=== PATIENT | male | born 1995 | race Hispanic/Latino ===

== ENCOUNTER 2022-03-24 20:44 | Inpatient (IN) | payer BC, OTHER ==
[~2022-03-24] VITALS: Ht 182.9 cm; Wt 131.1 kg
[2022-03-24] MEDS ORDERED: ONDANSETRON 4MG INJ IV PRN (21:30)
[2022-03-24] MEDS ORDERED: ACETAMINOPHEN 650 MG SUPPOSITORY RC PRN (21:30)
[2022-03-24] MEDS ORDERED: MORPHINE 2 MG SYG IV PRN (21:30)
[2022-03-24] MEDS ORDERED: HYDROMORPHONE 1 MG INJ IV PRN (21:30)
[2022-03-24 21:35] VITALS: BP 117/67
[2022-03-24 22:03] LABS: BASOPHILS % (AUTO) 0.6 % (0.0-5.0); HEMATOCRIT 41.2 % (42-54); LYMPHOCYTES % (AUTO) 13.3 % (21.0-51.0); MEAN CORPUSCULAR HEMOGLOBIN 31.8 pg (27.0-33.0); MEAN CORPUSCULAR HGB CONC 34.2 g/dL (32.0-36.0); MONOCYTES % (AUTO) 8.5 % (3.0-13.0); PLATELET COUNT (AUTO) 360 K/uL (130-400); RED BLOOD CELL COUNT(AUTO) 4.43 MIL/uL (4.50-6.20); RED CELL DISTRIBUTION WIDTH 12.3 % (11.0-15.5); WHITE BLOOD COUNT (AUTO) 16.5 K/uL (4.8-10.8)
[2022-03-24 22:08] VITALS: BP 117/67
[2022-03-24] MEDS ORDERED: LACTATED RINGERS 1000ML 1,000 ML IV ONE (22:09)
[2022-03-24 22:19] LABS: INR 1.05 (0.85-1.15); PROTHROMBIN TIME 11.4 SEC (9.6-11.6)
[2022-03-24 22:21] LABS: PARTIAL THROMBOPLASTIN TIME 23.3 SEC (26.3-35.5)
[2022-03-24 22:37] LABS: ALBUMIN 3.5 g/dL (3.5-5.0); CREATININE 1.1 mg/dL (0.5-1.5); MAGNESIUM 2.2 mg/dL (1.80-2.40); PHOSPHORUS 3.9 mg/dL (2.5-4.9); TOTAL PROTEIN, SERUM 8.4 g/dL (6.0-8.3)
[2022-03-24] MEDS ORDERED: IOHEXOL 350 MG/ML 100ML INFUS..BTL IV ONE (23:52)
[2022-03-25 00:15] VITALS: BP 125/64
[2022-03-25 01:51] LABS: APPEARANCE,URINE CLEAR (CLEAR); BILIRUBIN,URINE NEGATIVE (NEGATIVE); COLOR,URINE LIGHT-YELLOW (YELLOW); GLUCOSE, URINE (UA) NEGATIVE (NEGATIVE); KETONES,URINE 40 mg/dL (NEGATIVE); LEUKOCYTE ESTERASE ,URINE NEGATIVE Leu/uL (NEGATIVE); NITRATE,URINE NEGATIVE (NEGATIVE); OCCULT BLOOD,URINE NEGATIVE (NEGATIVE); PROTEIN,URINE 20 mg/dL (NEGATIVE); UROBILINOGEN,URINE 0.2 mg/dL (0.2-1.0)
[2022-03-25 01:58] LABS: RBC,URINE 0-1 /HPF (0-1); WBC,URINE 0-1 /HPF (0-1)
[2022-03-25 04:45] VITALS: BP 123/68
[2022-03-25 06:14] LABS: BASOPHILS % (AUTO) 0.5 % (0.0-5.0); EOSINOPHILS % (AUTO) 2.3 % (0.0-8.0); HEMATOCRIT 38.7 % (42-54); LYMPHOCYTES % (AUTO) 14.7 % (21.0-51.0); MEAN CORPUSCULAR HEMOGLOBIN 31.8 pg (27.0-33.0); MEAN CORPUSCULAR HGB CONC 33.1 g/dL (32.0-36.0); MONOCYTES % (AUTO) 9.9 % (3.0-13.0); NEUTROPHILS % (AUTO) 70.6 % (40.0-77.0); PLATELET COUNT (AUTO) 423 K/uL (130-400); RED BLOOD CELL COUNT(AUTO) 4.03 MIL/uL (4.50-6.20); RED CELL DISTRIBUTION WIDTH 12.2 % (11.0-15.5); WHITE BLOOD COUNT (AUTO) 14.7 K/uL (4.8-10.8)
[2022-03-25 06:27] LABS: CREATININE 1.2 mg/dL (0.5-1.5); POTASSIUM 4.1 mmol/L (3.5-5.1)
[2022-03-25 08:50] VITALS: BP 113/64
[2022-03-25] MEDS: ENOXAPARIN SODIUM 40 MG/0.4 ML SYRINGE SQ SCH ×2 (09:00→21:42)
[2022-03-25] MEDS: FAMOTIDINE 20MG VIAL IV SCH ×2 (10:08→21:00)
[2022-03-25] MEDS: LACTATED RINGERS 1000ML 1,000 ML IV SCH ×2 (10:50→17:08)
[2022-03-25 12:40] VITALS: BP 116/60
[2022-03-25 16:35] VITALS: BP 106/62
[2022-03-25 20:00] VITALS: BP 118/63
[2022-03-26] VITALS (25 sets, daily range): BP systolic 100–164; BP diastolic 50–94
[2022-03-26] MEDS: LACTATED RINGERS 1000ML 1,000 ML IV SCH ×2 (01:58→13:30)
[2022-03-26] MEDS ORDERED: FENTANYL CITRATE PF 50 MCG/1 ML 5ML AMP IV ONE ×2 (09:06→18:35)
[2022-03-26] MEDS ORDERED: PROPOFOL 10 MG/ML 20ML VIAL IV ONE (09:06)
[2022-03-26] MEDS ORDERED: ROCURONIUM 10MG/1ML SYR 10 MG/ML ML ONE ×4 (09:06→17:06)
[2022-03-26] MEDS ORDERED: MIDAZOLAM HCL 1 MG/ML 2ML VIAL ONE ×2 (09:06→14:59)
[2022-03-26] MEDS: FAMOTIDINE 20MG VIAL IV SCH ×2 (09:56→21:00)
[2022-03-26] MEDS ORDERED: BUPIVACAINE/PF 0.5% 30ML VIAL ONE (12:54)
[2022-03-26] MEDS ORDERED: LIDOCAINE HCL 1% 20 ML VIAL ONE (12:54)
[2022-03-26] MEDS ORDERED: ONDANSETRON 4MG INJ ONE (15:00)
[2022-03-26] MEDS ORDERED: LIDOCAINE HCL 1% 20 ML VIAL MISC ONE (15:49)
[2022-03-26] MEDS ORDERED: BUPIVACAINE/PF 0.5% 30ML VIAL INJ ONE (15:50)
[2022-03-26] MEDS ORDERED: FENTANYL CITRATE PF 50 MCG/1 ML 2ML VIAL ONE (15:51)
[2022-03-26] MEDS ORDERED: MEPERIDINE-PF 25 MG/ML SYG ONE ×2 (18:00→18:14)
[2022-03-26] MEDS ORDERED: GLYCOPYRROLATE 1 MG/5 ML SYRINGE ONE (18:43)
[2022-03-26] MEDS ORDERED: NEOSTIGMINE 5MG/5ML SYR IV ONE (18:43)
[2022-03-26] MEDS ORDERED: KETOROLAC 30MG VIAL (30MG/ML) ONE ×2 (18:48→18:49)
[2022-03-26] MEDS ORDERED: HYDROMORPHONE 1 MG INJ ONE (19:37)
[2022-03-26] MEDS ORDERED: ZOSYN 3.375GM+NS 50ML 50 ML ONE (19:55)
[2022-03-26] MEDS: ZOSYN 3.375GM+NS 50ML 50 ML IV SCH (20:20)
[2022-03-26] MEDS ORDERED: MORPHINE 4 MG SYG IVP PRN (20:30)
[2022-03-27] MEDS: LACTATED RINGERS 1000ML 1,000 ML IV SCH ×2 (00:22→16:10)
[2022-03-27] MEDS: KETOROLAC 30MG VIAL (30MG/ML) IVP SCH ×5 (00:23→21:28)
[2022-03-27 00:50] VITALS: BP 123/73
[2022-03-27 04:00] VITALS: BP 129/68
[2022-03-27 04:19] LABS: BASOPHILS % (AUTO) 0.3 % (0.0-5.0); EOSINOPHILS % (AUTO) 0.1 % (0.0-8.0); HEMATOCRIT 36.1 % (42-54); LYMPHOCYTES % (AUTO) 8.8 % (21.0-51.0); MEAN CORPUSCULAR HGB CONC 34.3 g/dL (32.0-36.0); MONOCYTES % (AUTO) 6.5 % (3.0-13.0); NEUTROPHILS % (AUTO) 82.7 % (40.0-77.0); PLATELET COUNT (AUTO) 471 K/uL (130-400); RED BLOOD CELL COUNT(AUTO) 3.88 MIL/uL (4.50-6.20); WHITE BLOOD COUNT (AUTO) 11.6 K/uL (4.8-10.8)
[2022-03-27 04:39] LABS: ALBUMIN 2.7 g/dL (3.5-5.0); CREATININE 0.9 mg/dL (0.5-1.5); MAGNESIUM 2.1 mg/dL (1.80-2.40); PHOSPHORUS 4.2 mg/dL (2.5-4.9); TOTAL PROTEIN, SERUM 6.5 g/dL (6.0-8.3)
[2022-03-27] MEDS: ZOSYN 3.375GM+NS 50ML 50 ML IV SCH ×3 (05:01→21:28)
[2022-03-27 08:50] VITALS: BP 118/67
[2022-03-27] MEDS: FAMOTIDINE 20MG VIAL IV SCH ×2 (10:37→21:28)
[2022-03-27] MEDS: ENOXAPARIN SODIUM 40 MG/0.4 ML SYRINGE SQ SCH (10:38)
[2022-03-27 12:22] VITALS: BP 119/72
[2022-03-27 16:15] VITALS: BP 117/69
[2022-03-27 20:00] VITALS: BP 119/77
[2022-03-27] MEDS: HYDROMORPHONE 0.5 MG SYG (0.5MG/0.5ML) IVP PRN (22:48)
[2022-03-28] VITALS (7 sets, daily range): BP systolic 106–132; BP diastolic 67–86
[2022-03-28] MEDS: KETOROLAC 30MG VIAL (30MG/ML) IVP SCH ×4 (02:44→21:00)
[2022-03-28] MEDS: HYDROMORPHONE 0.5 MG SYG (0.5MG/0.5ML) IVP PRN (04:01)
[2022-03-28] MEDS: ZOSYN 3.375GM+NS 50ML 50 ML IV SCH ×3 (04:51→21:36)
[2022-03-28] MEDS: FAMOTIDINE 20MG VIAL IV SCH ×2 (11:04→21:36)
[2022-03-28] MEDS: ENOXAPARIN SODIUM 40 MG/0.4 ML SYRINGE SQ SCH (11:05)
[2022-03-29] MEDS: KETOROLAC 30MG VIAL (30MG/ML) IVP SCH ×3 (03:00→20:59)
[2022-03-29 04:40] VITALS: BP 115/60
[2022-03-29] MEDS: ZOSYN 3.375GM+NS 50ML 50 ML IV SCH ×3 (05:13→21:00)
[2022-03-29 05:40] LABS: BASOPHILS % (AUTO) 1.3 % (0.0-5.0); EOSINOPHILS % (AUTO) 4.1 % (0.0-8.0); HEMATOCRIT 36.4 % (42-54); LYMPHOCYTES % (AUTO) 36.3 % (21.0-51.0); MEAN CORPUSCULAR HEMOGLOBIN 31.7 pg (27.0-33.0); MEAN CORPUSCULAR HGB CONC 33.2 g/dL (32.0-36.0); MEAN CORPUSCULAR VOLUME 95.3 fL (79-99); MONOCYTES % (AUTO) 6.9 % (3.0-13.0); PLATELET COUNT (AUTO) 505 K/uL (130-400); RED BLOOD CELL COUNT(AUTO) 3.82 MIL/uL (4.50-6.20); RED CELL DISTRIBUTION WIDTH 12.2 % (11.0-15.5); WHITE BLOOD COUNT (AUTO) 7.1 K/uL (4.8-10.8)
[2022-03-29 05:57] LABS: ALBUMIN 2.9 g/dL (3.5-5.0); BILIRUBIN,DIRECT 0.1 mg/dL (0.0-0.3); CREATININE 1.1 mg/dL (0.5-1.5); POTASSIUM 4.2 mmol/L (3.5-5.1); TOTAL PROTEIN, SERUM 6.4 g/dL (6.0-8.3)
[2022-03-29 08:00] VITALS: BP 112/71
[2022-03-29] MEDS: FAMOTIDINE 20MG VIAL IV SCH ×2 (09:33→21:00)
[2022-03-29] MEDS: ENOXAPARIN SODIUM 40 MG/0.4 ML SYRINGE SQ SCH (09:35)
[2022-03-29 11:50] VITALS: BP 123/95
[2022-03-29 15:53] VITALS: BP 114/67
[2022-03-29 20:00] VITALS: BP 109/64
[2022-03-29 23:38] VITALS: BP 121/65
[2022-03-30] MEDS: KETOROLAC 30MG VIAL (30MG/ML) IVP SCH ×2 (03:00→09:00)
[2022-03-30 03:44] VITALS: BP 98/62
[2022-03-30] MEDS: ZOSYN 3.375GM+NS 50ML 50 ML IV SCH ×2 (05:43→13:00)
[2022-03-30 08:00] VITALS: BP 117/71
[2022-03-30] MEDS: FAMOTIDINE 20MG VIAL IV SCH (10:06)
[2022-03-30] MEDS: ENOXAPARIN SODIUM 40 MG/0.4 ML SYRINGE SQ SCH (10:06)
[2022-03-30 12:00] VITALS: BP 130/68
== END 2022-03-30 15:20 | disposition home or self-care (01) | DRG 417 ==
LOC: EDH 20:44 → DIRECT 21:29 → 3DH 21:43
PROVIDERS: ADMIT Internal Medicine; ATTEND Internal Medicine
PROC: 0FT44ZZ Resection of Gallbladder, Percutaneous Endoscopic Approach (ICD-10-PCS; principal; 2022-03-26 15:16)
DX: K80.00 Calculus of gallbladder with acute cholecystitis without obstruction (principal); K65.0 Generalized (acute) peritonitis; Z20.822 Contact with and (suspected) exposure to COVID-19; K66.0 Peritoneal adhesions (postprocedural) (postinfection); R16.0 Hepatomegaly, not elsewhere classified; K82.A1 Gangrene of gallbladder in cholecystitis
CPT/HCPCS: 36415; 74177; 76705; 80048; 80053; 80076; 81001; 83735; 84100; 84145; 85025; 85610; 85730; 86850; 86900; 86901; 87040; 87635; 93005; G0378; J1170; J1650; J1885; J2175; J2250; J2405; J2543; J2704; J2710; J3010; J3490; J7030; J7120; Q9967